=== PATIENT | female | born 1970 | race Caucasian/White ===

== ENCOUNTER 2017-01-27 02:34 | Emergency (ER) | payer BC ==
[~2017-01-27] VITALS: Ht 160 cm; Wt 64.1 kg
[2017-01-27 02:37] VITALS: TEMP 36.9; Ht 160 cm; Wt 64.1 kg
[2017-01-27 03:17] VITALS: BP 120/76; PULSE 77; O2SAT 98
--- NOTE | 2017-01-27 04:13 | EMERGENCY ROOM VISIT NOTE ---
History First contact with patient: 02:42 Chief Complaint: FACIAL PAIN/INJURY Stated Complaint: NUMBNESS,"PULLING" FEELING ON SIDE OF MOUTH History of Present Illness The patient is a 46 year old female who presents to the Emergency Room with complaints of vague sensation of numbness or swelling along the left side of her face. The patient's symptoms began over the past one to 2 hours. She does not have recent injury or trauma. She does not have pain of her head, neck, face, jaw, or teeth. The patient is able to move her arms and legs without difficulty. No lightheadedness or dizziness. No chest pain, chest tightness, or shortness of breath. She has had some recent URI symptoms, and completed Augmentin 6 days ago. The patient considers herself usually healthy and rates her discomfort a 0/10. Review of Systems More than 10 systems were reviewed and otherwise negative with the exception of history of present illness. Past Medical/Surgical History Borderline cholesterol Family History Cancer Diabetes mellitus Heart disease Hypertension Lung disease Social History Smoking Status: Never Smoker Alcohol Use: occasionally Drug Use: none Marital Status: Housing Status: lives with family Occupation Status: employed Current/Historical Medications No Active Prescriptions or Reported Meds Allergies Coded Allergies: Erythromycin (Verified Allergy, Unknown, 01/27/17) Physical Exam Vital Signs Date Time Temp Pulse Resp B/P (MAP) Pulse Ox O2 Delivery O2 Flow Rate FiO2 01/27/17 03:17 77 16 120/76 98 01/27/17 02:37 36.9 93 18 120/77 99 Room Air Pain Rating (0-10): 0 Physical Exam VITALS: Vitals are noted on the nurse's note and reviewed by myself. Vital signs stable. GENERAL: Well-developed, well-nourished, white female, who is in no acute distress and resting comfortably. Patient is cooperative with the examination. HEAD: Normocephalic atraumatic. EARS: External ear normal. External auditory canals clear, tympanic membranes pearly vora without erythema or effusion bilaterally. EYES: Pupils equal round and reactive to light and accommodation. Conjunctivae without injection, sclerae without icterus. Extraocular movements intact. NOSE: Patent, turbinates without inflammation or discharge. MOUTH: Mucous membranes moist. Tonsils are not enlarged. Pharynx without erythema, blood, or exudate. Uvula midline. Airway patent. Dentition in good repair without evidence of abscess or infection NECK: Supple without nuchal rigidity. No lymphadenopathy. No thyromegaly. Cervical spine is nontender. HEART: Regular rate and rhythm without murmurs gallops or rubs. LUNGS: Clear to auscultation bilaterally without wheezes, rales or rhonchi. No retractions or accessory muscle use. MUSCULOSKELETAL: No muscle atrophy, erythema, or edema noted. Full range of motion without joint tenderness in all extremities. Strength is 5/5 throughout all extremities No tenderness to palpation. Normal gait. Strength 5/5 throughout. NEURO: Patient was alert and oriented to person place and time. CN II through XII intact. Deep tendon reflexes 2+ throughout. No focal neurological deficits. Eyebrows are upgoing and symmetric. No facial drooping. Patient is able to smile and frown symmetrically. Sensation is intact to light stimulus across the entirety of the face. Stroke scale is 0. GCS 15. Normal Romberg. Normal heel don. Normal rapid alternating movements. SKIN: The skin was without rashes, erythema, edema, or bruising. Capillary reflex less than 2 seconds. Medical Decision & Procedures ED Course Physical exam and history were performed. Nursing notes and EMR were reviewed. Patient appears to have a vague sensation of the left side of her face near her left lower lip. The patient isolates the total area of this region is roughly a 2 x 3 cm region. On examination the patient does not have neurologic deficit. Her sensation is intact throughout the face and neck. She has full and symmetric use of her face and extremities. She does not have rash or evidence of fever. I do not appreciate a dental infection. I discussed the case with my attending physician, Dr. Betancur, who also independently evaluated the patient. We agreed the patient examination is unremarkable, and the patient seems well. We had a very lengthy discussion together with the patient regarding her symptoms. Her discomfort could represent any number of very early processes including Grimaldo's palsy, MS, atypical migraine, viral infection, dental infection, stroke, and other etiologies. Utilizing shared decision making we elected to defer imaging and additional workup at this time. The symptoms have been ongoing for just over one hour, and they do not appear to have declare themselves. The patient was educated that her symptoms may resolve or evolve over the next several hours. She does have a good home support system, and appears well for discharge home. She certainly could have a very early Grimaldo's palsy, with etiologies such as stroke being extremely unlikely. The patient will need very close follow-up, and we recommended that she be seen by her primary care physician in 8-12 hours for a recheck. She and her were thoroughly invited back to the ER if symptoms worsen. We did provide the patient the telephone number to the ER executive legal secretary so that she may call throughout the night if she has any questions. The patient and family were pleased with this plan of voice understanding. The patient rated her discomfort a 0/10 at the time of departure. The chart was completed utilizing [employer] Speech Voice Recognition Software. Grammatical errors, random word insertions, pronoun errors, and incomplete sentences are an occasional consequence of this system due to software limitations, ambient noise, and hardware issues. Any formal questions or concerns about the content, text, or information contained within the body of this dictation should be directly addressed to the provider for clarification. . Medical Decision Differential diagnosis: Etiologies such as stroke, Grimaldo's palsy, trigeminal neuralgia, dental infection , electrolyte or metabolic abnormality, Lyme disease, MS, atypical migraine, anxiety, metabolic, infection, hypo/hyperglycemia, electrolyte abnormalities, cardiac sources, intracerebral event, toxicologic, neurologic, as well as others were entertained. Impression Primary Impression: Discomfort of face Departure Information Dispostion Home / Self-Care Condition FAIR Prescriptions No Active Prescriptions or Reported Meds Forms HOME CARE DOCUMENTATION FORM, IMPORTANT VISIT INFORMATION Patient Instructions My [facility] Additional Instructions You were seen and evaluated today on an emergency basis only. This is not a substitute for, or an effort to provide, complete comprehensive medical care. It is not possible to recognize and treat all injuries or illnesses in a single emergency department visit. For this reason it is recommended that you followup with your primary care physician in about 8-12 hours for recheck of your condition. Call at 8 AM and let the office know you were seen in the emergency department. This should help facilitate making your appointment. If your symptoms worsen or evolve please return to the Emergency Department immediately. If you have additional questions or concerns before your appointment later today we are available at [phone]. You are welcome to return to the emergency department anytime with new, worsening, or concerning symptoms.
== END 2017-01-27 03:15 | disposition home or self-care (01) ==
LOC: C.EDB 02:35
DX: R20.0 Anesthesia of skin (principal); Z80.9 Family history of malignant neoplasm, unspecified; Z83.3 Family history of diabetes mellitus; Z82.49 Family history of ischemic heart disease and other diseases of the circulatory system

== ENCOUNTER → 2017-02-09 | Outpatient (CLI) | payer BC | END | disposition home or self-care (01) | LOC: C.PAPS 13:31 | PROVIDERS: ATTEND Obstetrics & Gynecology | DX: Z01.411 Encounter for gynecological examination (general) (routine) with abnormal findings (principal); R87.610 Atypical squamous cells of undetermined significance on cytologic smear of cervix (ASC-US) ==

== ENCOUNTER → 2017-07-08 | Outpatient (CLI) | payer BC ==
--- NOTE | 2017-07-08 15:21 | MAMMOGRAPHY REPORT ---
BILATERAL DIGITAL SCREENING MAMMOGRAM TOMOSYNTHESIS WITH CAD: 07/08/2017 CLINICAL HISTORY: Routine screening examination. TECHNIQUE: Breast tomosynthesis in addition to standard 2D mammography was performed. Current study was also evaluated with a Computer Aided Detection (CAD) system. COMPARISON: Comparison is made to exams dated: 07/07/2016 mammogram, 07/05/2015 mammogram, 4 mammogram, 04/14/2013 mammogram, and 04/13/2012 mammogram - [facility]. BREAST COMPOSITION: There are scattered areas of fibroglandular density in both breasts. FINDINGS: The parenchymal pattern is unchanged. No developing mass, architectural distortion or clus ter of suspicious microcalcifications is seen in either breast. IMPRESSION: ACR BI-RADS CATEGORY 2: BENIGN There is no mammographic evidence of malignancy. A 1 year screening mammogram is recommended. The pa tient will receive written notification of the results. Approximately 10% of breast cancers are not detected with mammography. A negative mammographic report should not delay biopsy if a clinically suggestive mass is present. Agueda Hloguin M.D. ay/:07/08/2017 14:51:11 Manager Mental Health: Ana JOHNSON(R)(M), [facility] letter sent: Normal 1/2 BI-RADS Code: ACR BI-RADS Category 2: Benign
== END | disposition home or self-care (01) ==
LOC: C.MAMM 14:12
PROVIDERS: ATTEND Obstetrics & Gynecology
DX: Z12.31 Encounter for screening mammogram for malignant neoplasm of breast (principal)

== ENCOUNTER → 2017-11-20 | Outpatient (CLI) | payer BC ==
--- NOTE | 2017-11-20 15:05 | MAMMOGRAPHY REPORT ---
UNILATERAL LEFT DIGITAL DIAGNOSTIC MAMMOGRAM TOMOSYNTHESIS WITH CAD AND TARGETED LEFT ULTRASOUND: 10/24 CLINICAL HISTORY: The patient reports a tender palpable left breast lump for a few days. TECHNIQUE: Breast tomosynthesis in addition to standard 2D mammography was performed. Current study was also evaluated with a Computer Aided Detection (CAD) system. Left CC and MLO 2D and tomosynthesi s images were obtained. COMPARISON: Comparison is made to exams dated: 07/08/2017 mammogram, 07/07/2016 mammogram, 5 mammogram, 07/04/2014 mammogram, 04/14/2013 mammogram, and 04/13/2012 mammogram - [facility]. BREAST COMPOSITION: There are scattered areas of fibroglandular density in the left breast. FINDINGS: A triangle marker vines the site of the palpable lump pointed out by the patient in the lef t lateral breast at approximately 3:00. There are no suspicious masses or other suspicious mammograp hic abnormality seen in this region. The remainder of the left breast is able compared to prior exam s, without suspicious masses, calcifications, or areas of architectural distortion noted. Targeted ultrasound was performed of the area of the palpable lump pointed out by the patient, in the left breast at approximately 3:00, centered around 6 cm from the nipple. Sonographically normal tis carlos is seen in this region, without evidence of a mass or other suspicious sonographic abnormality. IMPRESSION: ACR BI-RADS CATEGORY 2: BENIGN, TARGETED ULTRASOUND ACR BI-RADS CATEGORY 2: BENIGN No suspicious mammographic or sonographic abnormality at the site of the palpable left 3:00 breast karissa mp pointed out by the patient. There is no mammographic or targeted sonographic evidence of malignan cy. Recommend clinical follow-up for the palpable left breast lump, and recommend routine bilateral screening mammograms which are due in June 2018. The patient has been verbally notified of the results. Approximately 10% of breast cancers are not detected with mammography. A negative mammographic report should not delay biopsy if a clinically suggestive mass is present. Deborah Rodriguez M.D. /:11/20/2017 13:29:52 Batter Mixer: Simona Carter, [facility] letter sent: Normal 1/2 BI-RADS Code: ACR BI-RADS Category 2: Benign Ultrasound BI-RADS: ACR BI-RADS Category 2: Benign
== END | disposition home or self-care (01) ==
LOC: C.MAMM 13:05
PROVIDERS: ATTEND Physician Assistant
DX: N63.20 Unspecified lump in the left breast, unspecified quadrant (principal)